=== PATIENT | female | born 1980 | race American Indian/Alaskan Native ===

== ENCOUNTER 2016-09-14 11:21 | Emergency (ER) | payer OTHER ==
[2016-09-14 11:34] VITALS: RESP 19
--- NOTE | 2016-09-14 15:18 | C.PDOC ---
History Of Present Illness 36 y/o female presents to the ED with complains of lower back pain worsening over the past 4 days. Pt reports she slipped and fell on ice 4 days ago, pain was mild initially but today patient states she couldn't get out of bed due/to pain. Pt denies weakness, numbness, incontinence or any other complaints. Denies any other injury. Time Seen by Provider: 09/14/16 13:41 Chief Complaint (Nursing): Back Pain History Per: Patient History/Exam Limitations: no limitations Onset/Duration Of Symptoms: Days Current Symptoms Are (Timing): Worse Quality Of Discomfort: "Pain" Severity: Moderate Associated Symptoms: None Recent travel outside of the [place]: No Past Medical History Reviewed: Historical Data, Nursing Documentation, Vital Signs Vital Signs: Last Vital Signs Temp 98.6 F 09/14/16 19:10 Pulse 74 09/14/16 19:10 Resp 19 09/14/16 19:10 BP 131/88 09/14/16 19:10 Pulse Ox 99 09/14/16 19:10 - Medical History PMH: Asthma, HTN Family History: States: Unknown Family Hx - Social History Hx Tobacco Use: No Hx Alcohol Use: No Hx Substance Use: No - Immunization History Hx Tetanus Toxoid Vaccination: No Hx Influenza Vaccination: No Hx Pneumococcal Vaccination: No Review Of Systems Except As Marked, All Systems Reviewed And Found Negative. Constitutional: Negative for: Fever Genitourinary: Negative for: Incontinence Musculoskeletal: Positive for: Back Pain Neurological: Negative for: Weakness, Numbness Physical Exam - Physical Exam Appears: Non-toxic, No Acute Distress Skin: Warm, Dry, No Rash Head: Atraumatic, Normacephalic Nose: Normal Neck: Normal ROM, Supple Chest: Symmetrical Cardiovascular: Rhythm Regular, Murmur Respiratory: Normal Breath Sounds, No Rales, No Rhonchi, No Wheezing Gastrointestinal/Abdominal: Soft, No Tenderness Back: No Vertebral Tenderness, Paraspinal Tenderness (diffuse lower), Other ( decreased movement in bed due to severe pain) Extremity: Normal ROM, No Pedal Edema, No Deformity Extremity: Bilateral: Atraumatic Neurological/Psych: Oriented x3, Normal Speech, Normal Motor, Normal Sensation ED Course And Treatment O2 Sat by Pulse Oximetry: 96 (on room air) Pulse Ox Interpretation: Normal - CT Scan/US LS spine CT Other Rad Studies (CT/US): Read By Radiologist, Radiology Report Reviewed CT/US Interpretation: Accession No. : [id number]. Patient Name / ID : SWETA ALVARES / [id number]. Exam Date : 09/14/2016 17:51:27 ( Approved ). Study Comment : Sex / Age : F / 36Y. Creator : Loco Barone MD. Dictator : Loco Barone MD. Curing Press Maintainer : Materials And Corrosion Engineer : Loco Barone MD. Approver2 : Report Date : 09/14/2016 18:08:07. My Comment : . PROCEDURE: CT Lumbar Spine without contrast. HISTORY: pain to lowerback. COMPARISON: None. TECHNIQUE: Axial computed tomography images were obtained of the lumbar spine without the use of intravenous contrast. Coronal and sagittal reformatted images were created and reviewed. Radiation dose: Total exam DLP = mGy-cm. FINDINGS: VERTEBRAE: Unremarkable. No fracture. Normal alignment. DISCS/SPINAL CANAL/NEURAL FORAMINA: L1-2: Unremarkable. L2-3: Unremarkable. L3-4: Unremarkable. L4-5: Unremarkable. L5-S1: Disc herniation with epidural fat indentation. PARASPINAL SOFT TISSUES: Unremarkable. OTHER FINDINGS: None. IMPRESSION: L5-S1: Disc herniation with epidural fat indentation. Progress Note: On reassessment, patient is resting comfortably, with improvement of back pain. Patient remains afebrile, with no bony tenderness, no extremity numbness or weakness, or abdominal pain. Patient is ambulatory in the emergency department with no signs of discomfort. Patient was advised to follow up with physician/clinic in 1-2 days. Disposition - Disposition Referrals: Tk Lira MD [Staff Provider] - Disposition: HOME/ ROUTINE Disposition Time: 18:19 Condition: STABLE Additional Instructions: Follow up with PMD within 1-2 days. Return to ED if feel worse. Prescriptions: Ibuprofen [Motrin Tab] 600 mg PO Q8 #30 tab oxyCODONE/Acetaminophen [Percocet 5/325 mg Tab] 1 tab PO QID PRN #20 tab PRN Reason: Pain diaZEpam [Valium] 2 mg PO TID #15 tab Instructions: Back Pain (ED) - Clinical Impression Clinical Impression: Low back pain - PA / [employer] / Resident Statement MD/DO has reviewed & agrees with the documentation as recorded. - Scribe Statement The provider has reviewed the documentation as recorded by the Dariaibnithya Madrigal All medical record entries made by the Dariaibnithya were at my direction and personally dictated by me. I have reviewed the chart and agree that the record accurately reflects my personal performance of the history, physical exam, medical decision making, and the department course for this patient. I have also personally directed, reviewed, and agree with the discharge instructions and disposition.
[2016-09-14] MEDS ORDERED: Oxycodone/Acetaminophen 5/325 mg Tab ONE (15:19)
[2016-09-14] MEDS ORDERED: Oxycodone/Acetaminophen 5/325 mg Tab PO STA (15:22)
--- NOTE | 2016-09-14 18:09 | CT ---
PROCEDURE: CT Lumbar Spine without contrast HISTORY: pain to lowerback COMPARISON: None. TECHNIQUE: Axial computed tomography images were obtained of the lumbar spine without the use of intravenous contrast. Coronal and sagittal reformatted images were created and reviewed. Radiation dose: Total exam DLP = mGy-cm. FINDINGS: VERTEBRAE: Unremarkable. No fracture. Normal alignment. DISCS/SPINAL CANAL/NEURAL FORAMINA: L1-2: Unremarkable. L2-3: Unremarkable. L3-4: Unremarkable. L4-5: Unremarkable. L5-S1: Disc herniation with epidural fat indentation. PARASPINAL SOFT TISSUES: Unremarkable. OTHER FINDINGS: None. IMPRESSION: L5-S1: Disc herniation with epidural fat indentation.
[2016-09-14 19:13] VITALS: BP 131/88; PULSE 74; TEMP 98.6
[2016-09-15 14:34] VITALS: O2SAT 96
== END 2016-09-14 19:10 | disposition home or self-care (01) ==
LOC: C.ER 11:21
DX: M54.5 Low back pain (principal)

== ENCOUNTER 2018-04-13 14:49 | Emergency (ER) | payer OTHER ==
[2018-04-13 15:11] VITALS: RESP 18; TEMP 98.8
--- NOTE | 2018-04-13 15:30 | C.PDOC ---
History Of Present Illness Patient presents to ED c/o left shoulder pain since wednesday, as well as left foot pain that is chronic in nature. She denies falls/injuries, sensory changes, fever, rashes. Patient was given Percocet by PMD, states it has not been helping. Time Seen by Provider: 04/13/18 15:14 Chief Complaint (Nursing): Upper Extremity Problem/Injury History Per: Patient History/Exam Limitations: no limitations Onset/Duration Of Symptoms: Days Current Symptoms Are (Timing): Still Present Severity: Moderate Past Medical History Reviewed: Historical Data, Nursing Documentation, Vital Signs Vital Signs: Last Vital Signs Temp 98.8 F 04/13/18 15:07 Pulse 94 H 04/13/18 15:07 Resp 18 04/13/18 15:07 BP 138/80 04/13/18 15:07 Pulse Ox 96 04/13/18 15:07 - Medical History PMH: Asthma, Back Problems, HTN Surgical History: Appendectomy Family History: States: No Known Family Hx - Social History Hx Tobacco Use: No Hx Alcohol Use: No Hx Substance Use: No - Immunization History Hx Tetanus Toxoid Vaccination: No Hx Influenza Vaccination: No Hx Pneumococcal Vaccination: No Review Of Systems Constitutional: Negative for: Fever, Chills Cardiovascular: Negative for: Chest Pain Respiratory: Negative for: Cough, Shortness of Breath Gastrointestinal: Negative for: Nausea, Abdominal Pain Musculoskeletal: Positive for: Shoulder Pain (left ), Foot Pain (left) Skin: Negative for: Rash Neurological: Negative for: Weakness, Numbness, Headache, Dizziness Physical Exam - Physical Exam Appears: Well, Non-toxic, In Acute Distress (in moderate pain, morbidly obese) Skin: Normal Color, Warm, Dry, No Rash Eye(s): bilateral: Normal Inspection Oral Mucosa: Moist Cardiovascular: Rhythm Regular Respiratory: Normal Breath Sounds, No Rales, No Rhonchi, No Wheezing Extremity: No Pedal Edema, No Calf Tenderness, Capillary Refill (< 2 sec all digits ), No Deformity, No Swelling, Other (left posterior and lateral shoulder TTP, no deformity or swelling, (+) worsening of pain with abduction, (+) mild TTP at distal metatarsals (plantar aspect), no swelling or erthema) Extremity: Bilateral: Atraumatic, Normal Color And Temperature Pulses: Left Radial: Normal, Right Radial: Normal, Left Dorsalis Pedis: Normal, Right Dorsalis Pedis: Normal Neurological/Psych: Oriented x3, Normal Motor, Normal Sensation Gait: Steady ED Course And Treatment O2 Sat by Pulse Oximetry: 96 (RA) Pulse Ox Interpretation: Normal - Other Rad left shoulder xray X-Ray: Viewed By Me, Read By Radiologist Interpretation: Accession No. : [id number]. Patient Name / ID : SWETA ALVARES / [id number]. Exam Date : 04/13/2018 16:13:19 ( Approved ). Study Comment : Sex / Age : F / 37Y. Creator : Sujey Fountain. Dictator : Jerardo Sanchez MD. Vehicle Insurance Agent : Net Coordinator : Jerardo Sanchez MD. Approver2 : Report Date : 04/13/2018 16:24:54. My Comment : . Date of service: 04/13/2018. PROCEDURE: Radiographs of the Left Shoulder. HISTORY: left shoulder pain. COMPARISON: No prior. FINDINGS: BONES: No acute fracture dislocation is identified. However, increased space between the inferior margin of the left acromion and the superior margins of the left humeral head is identified which may indicate subluxation inferiorly. Clinically correlate further. A large effusion is not excluded within the subacromial bursa. Moderate degenerative change identified at the acromioclavicular joint including inferior osteophytes. None identified at the glenohumeral articulation. JOINTS: As above. SOFT TISSUES: Curvilinear soft tissue calcification cephalad to the left humeral head may reflect calcific tendinopathy. MRI may be useful further characterization. OTHER FINDINGS: None. IMPRESSION: No acute fracture is identified or definite dislocation. Prominent subacromial space may reflect inferior subluxation of the left humeral head with or without related large subacromial bursal effusion. Calcific tendinopathy suggested as well. Consider follow-up MRI for added characterization. Progress Note: Patient given IM toradol and PO Valium. Xray of left shoulder ordered and reviewed. Patient placed in left shoulder sling by orthotic technician. Reevaluation Time: 17:25 Reassessment Condition: Improved (On reassessment, patient is resting comfortably and states her pain has improved. Rxs for pain medications given, and patient instructed to follow up with orthopedics within 1 week. She understands she should return to ED if symptoms worsen.) Medical Decision Making Medical Decision Making: SEDRICK SOL 1980 [address] [facility] [id number] LUIS EDUARDO SWETA 1980 [address] [facility] [id number] Report Criteria First Name: luis eduardo, Last Name: sweta, : 1980 Prescriptions Filled ID Written Drug QTY Days Prescriber Rx # Pharmacy* Refills Daily Dose Pymt Type SHUTTLE INSPECTOR 04/08/2018 2 04/01/2018 OXYCODONE-ACETAMINOPHEN 5-325 20.0 7 [place] [id number] [facility] ([id number]) 0 21.43 [facility] [place] 01/15/2018 2 01/13/2018 OXYCODONE-ACETAMINOPHEN 5-325 20.0 7 [place] [id number] [facility] (8170) 0 21.43 [facility] [place] 12/27/2017 2 12/27/2017 OXYCODONE-ACETAMINOPHEN 5-325 40.0 10 [place] [id number] [facility] (8170) 0 30.0 [facility] [place] 11/26/2017 2 11/17/2017 OXYCODONE-ACETAMINOPHEN 5-325 40.0 13 [place] [id number] [facility] (8170) 0 23.08 [facility] [place] 10/06/2017 2 10/02/2017 OXYCODONE-ACETAMINOPHEN 5-325 40.0 10 [place] [id number] [facility] (8170) 0 30.0 [place] [place] 08/18/2017 2 08/12/2017 OXYCODONE-ACETAMINOPHEN 5-325 30.0 10 [place] [id number] [facility] (8170) 0 22.5 [place] [place] 07/22/2017 2 07/16/2017 OXYCODONE-ACETAMINOPHEN 5-325 60.0 20 [place] [id number] [facility] (8170) 0 22.5 [place] 06/24/2017 2 06/23/2017 OXYCODONE-ACETAMINOPHEN 5-325 45.0 8 [facility] [id number] [facility] (8170) 0 42.19 [facility] [place] 06/08/2017 2 05/27/2017 OXYCODONE-ACETAMINOPHEN 5-325 60.0 10 [facility] [id number] [facility] (8170) 0 45.0 [facility] [place] 05/17/2017 2 05/15/2017 OXYCODONE-ACETAMINOPHEN 5-325 10.0 3 [facility] ([id number]) 0 25.0 [facility] [place] 04/27/2017 1 04/22/2017 ENDOCET 5-325 TABLET 60.0 15 [facility] [id number] [facility] (7847) 0 30.0 [facility] [place] 04/14/2017 1 04/14/2017 ENDOCET 5-325 TABLET 60.0 15 [facility] [id number] [facility] (7847) 0 30.0 [facility] [place] *Pharmacy is created using a combination of pharmacy name and the last four digits of the pharmacy license number. *Per CDC guidance, the MME conversion factors prescribed or provided as part of medication-assisted treatment for opioid use disorder should not be used to benchmark against dosage thresholds meant for opioids prescribed for pain. Buprenorphine products have no agreed upon morphine equivalency, and as partial opioid agonists, are not expected to be associated with overdose risk in the same dose-dependent manner as doses for full agonist opioids. MME = morphine milligram equivalents. mg = dose in milligrams. Prescribers Name Address [facility] State Zip Phone MD JACKIE, LORI [address] [facility] [id number] [phone] PRECIOUS MCCURDY, LYNDSAY [address] [facility] [address] [phone] Disposition Counseled Patient/Family Regarding: Studies Performed, Diagnosis, Need For Followup, Rx Given - Disposition Referrals: Yakov Knapp III, MD [Staff Provider] - Disposition: HOME/ ROUTINE Disposition Time: 17:25 Condition: STABLE Additional Instructions: FOLLOW UP WITH ORTHOPEDICS WITHIN 1 WEEK USE PAIN MEDICATION NEEDED RETURN TO ER IF SYMPTOMS WORSEN Prescriptions: Diazepam [Valium] 2 mg PO BID PRN #12 tablet PRN Reason: musle spasm Naproxen [Naprosyn] 1 tab PO BID PRN #25 tab PRN Reason: Pain Instructions: Calcific Tendonitis of the Shoulder (DC) Forms: [employer] (Mosotho) Print Language: AZERI - POA Present On Arrival: None - Clinical Impression Clinical Impression: Shoulder subluxation, left, Calcific tendonitis of left shoulder
--- NOTE | 2018-04-13 16:37 | RAD ---
Date of service: 04/13/2018 PROCEDURE: Radiographs of the Left Shoulder HISTORY: left shoulder pain COMPARISON: No prior. FINDINGS: BONES: No acute fracture dislocation is identified. However, increased space between the inferior margin of the left acromion and the superior margins of the left humeral head is identified which may indicate subluxation inferiorly. Clinically correlate further. A large effusion is not excluded within the subacromial bursa. Moderate degenerative change identified at the acromioclavicular joint including inferior osteophytes. None identified at the glenohumeral articulation. JOINTS: As above. SOFT TISSUES: Curvilinear soft tissue calcification cephalad to the left humeral head may reflect calcific tendinopathy. MRI may be useful further characterization. OTHER FINDINGS: None. IMPRESSION: No acute fracture is identified or definite dislocation. Prominent subacromial space may reflect inferior subluxation of the left humeral head with or without related large subacromial bursal effusion. Calcific tendinopathy suggested as well. Consider follow-up MRI for added characterization.
[2018-04-13 17:42] VITALS: BP 128/72; PULSE 90
[2018-04-13 18:46] VITALS: O2SAT 96
== END 2018-04-13 17:42 | disposition home or self-care (01) ==
LOC: C.ER 14:49
DX: S43.002A Unspecified subluxation of left shoulder joint, initial encounter (principal); X58.XXXA Exposure to other specified factors, initial encounter; M75.32 Calcific tendinitis of left shoulder
CPT/HCPCS: 73030; 96372; 99285; J1885